=== PATIENT | male | born 2005 | race Caucasian/White ===

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

== ENCOUNTER 2025-01-31 01:12 | Emergency (ER) | payer MEDICAID ==
[~2025-01-31] VITALS: Ht 157.5 cm; Wt 68.0 kg
[2025-01-31] MEDS: LORazepam 1 MG tablet PO ONE (02:14)
[2025-01-31] MEDS: ketorolac trometh 30MG/ML vial 30 MG/ML VIAL IM ONE (02:14)
[2025-01-31 03:39] VITALS: BP 112/78; PULSE 88; RESP 18; TEMP 98.6; O2SAT 98
== END 2025-01-31 03:40 | disposition home or self-care (01) ==
LOC: ER 01:13
DX: S20.212A Contusion of left front wall of thorax, initial encounter (principal); F10.129 Alcohol abuse with intoxication, unspecified; Y90.9 Presence of alcohol in blood, level not specified; W50.0XXA Accidental hit or strike by another person, initial encounter; Y93.89 Activity, other specified; Y92.89 Other specified places as the place of occurrence of the external cause; Y99.8 Other external cause status
CPT/HCPCS: 71101; 96372; 99283; J1885